=== PATIENT | male | born 1955 | race Caucasian/White ===

== ENCOUNTER 2025-04-13 04:30 | Emergency (ER) | payer MEDICARE ==
[2025-04-13 04:57] LABS: BASOPHILS ABSOLUTE AUTO 0.06 10^3/uL (0.00-0.10); BASOPHILS PERCENT AUTO 0.5 % (0.0-1.0); EOSINOPHILS ABSOLUTE AUTO 0.12 10^3/uL (0.10-0.30); EOSINOPHILS PERCENT AUTO 1.0 % (1.0-3.0); IMMATURE GRAN ABSOLUTE AUTO 0.05 10^3/uL (0.00-0.04); IMMATURE GRAN PERCENT AUTO 0.4 % (0.0-0.4); LYMPHOCYTES ABSOLUTE AUTO 1.38 10^3/uL (1.00-4.00); LYMPHOCYTES PERCENT AUTO 11.6 % (20.0-40.0); MEAN PLATELET VOLUME 10.6 fL (7.4-10.4); MONOCYTES ABSOLUTE AUTO 1.56 10^3/uL (0.10-0.80); MONOCYTES PERCENT AUTO 13.1 % (2.0-8.0); NEUTROPHILS ABSOLUTE AUTO 8.73 10^3/uL (2.50-7.00); NEUTROPHILS PERCENT AUTO 73.4 % (50.0-70.0); PLATELET COUNT,PLT 153 10^3/uL (150-400); RED BLOOD CELL COUNT 4.48 10^6/uL (4.50-6.00); RED CELL DISTRIBUTION WIDTH 12.5 % (11.5-14.5); WHITE BLOOD CELL COUNT,WBC 11.90 10^3/uL (5.00-10.00)
[2025-04-13 05:09] LABS: ALANINE AMINOTRANSFERASE,ALT 25.0 U/L (14-63); ASPARTATE AMNIOTRANSFERASE,AST 18.0 U/L (15-37); BILIRUBIN TOTAL 0.5 mg/dL (0.2-1.0); BLOOD UREA NITROGEN,BUN 14.0 mg/dL (7-18); CARBON DIOXIDE,CO2 25.4 mmol/L (21.0-32.0); CHLORIDE,CL 103.0 mmol/L (98-107); CREATININE 1.23 mg/dL (0.51-1.17); EST CRCL DRUG DOSING (CG) 59.35 mL/min; GLUCOSE RANDOM 126.0 mg/dL (70-140); POTASSIUM,K 4.8 mmol/L (3.5-5.1); PROTEIN TOTAL,TP 7.7 g/dL (6.4-8.2); SODIUM,NA 140.0 mmol/L (136-145)
[2025-04-13 05:11] LABS: ESTIMATED GFR 64.0 mL/min (>=60)
[2025-04-13 05:25] LABS: INR 2.3 (0.9-1.1)
[2025-04-13 06:05] LABS: APPEARANCE,URINE CLEAR (CLEAR); GLUCOSE,URINE NEGATIVE (NEGATIVE); OCCULT BLOOD,URINE TRACE-INTACT (NEGATIVE)
[2025-04-13 06:12] LABS: EPITHELIAL CELLS,URINE NOT SEEN /LPF
== END 2025-04-13 08:29 ==
LOC: KA.ED 04:30
DX: S06.5X9A Traumatic subdural hemorrhage with loss of consciousness of unspecified duration, initial encounter (principal); Z51.5 Encounter for palliative care; Z88.8 Allergy status to other drugs, medicaments and biological substances; Z79.82 Long term (current) use of aspirin; Z79.01 Long term (current) use of anticoagulants; Z79.899 Other long term (current) drug therapy; W01.198A Fall on same level from slipping, tripping and stumbling with subsequent striking against other object, initial encounter
CPT/HCPCS: 70450; 71045; 80053; 81001; 82947; 83605; 84484; 85025; 85610; 96360; 99285; 99285-25; A4315; J7030